=== PATIENT | female | born 1960 | race Two or more races ===

== ENCOUNTER 2023-09-10 09:46 | Inpatient (IN) ==
[2023-09-10] MEDS: fentaNYL 100 mcg/2 ml 50 MCG/ML VIAL IV SLOW PU ONE (10:16)
[2023-09-10] MEDS: Ondansetron 4 mg VIAL 2 MG/ML 2 ml VIAL IV ONE ×3 (10:16→15:12)
[2023-09-10] MEDS: Acetaminophen IV 1 GM/100ML 1,000 MG/100 ML BAG IV ONE (10:20)
[2023-09-10] MEDS: Cefepime 2 GM in Dextrose 2 GM/50 ML BAG IV ONE (10:22)
[2023-09-10 10:27] LABS: ABS Lymphocytes 0.8 10^3/uL (1.0-4.8); ABS Monocytes 0.8 10^3/uL (0.0-0.9); ABS Nucleated RBC 0.01 10^3/ul; Eosinophil % 0.3 %; Hematocrit 38.4 % (35-45); Hemoglobin 12.7 g/dL (11.5-14.3); Lymphocyte % 8.1 %; Mean Corpuscular Hemoglobin 27.3 pg (27-33); Mean Corpuscular Hgb Conc 33.2 g/dL (31-36); Mean Corpuscular Volume 82.2 fL (80-97); Mean Platelet Volume 8.3 fL (7.5-11.2); Nucleated Red Blood Cells % 0.1 %/100WBC (0.0-0.8); Platelet Count 294 10^3/uL (150-450); Red Blood Count 4.67 10^6/uL (3.63-4.92); Red Cell Distribution Width 14.8 % (12-17); White Blood Count 9.6 10^3/uL (3.8-11.8)
[2023-09-10 10:40] LABS: Activated Partial Thrombo Time 23.7 seconds (26.0-38.0); INR 1.05 (0.83-1.13)
[2023-09-10] MEDS: Morphine 4 MG/ML VIAL (1 ml) IV ONE ×2 (10:40→15:16)
[2023-09-10] MEDS: metroNIDAZOLE IV 500 MG/100ML 500 MG/100 ML BAG IVPB ONE (10:44)
[2023-09-10 10:49] LABS: Albumin 4.6 g/dL (3.2-5.2); Albumin/Globulin Ratio 1.9 (1-3); C Reactive Protein 14.28 mg/L (<8.01); Calcium 9.7 mg/dL (8.6-10.3); Creatinine, Serum 0.88 mg/dL (0.51-0.95); Globulin 2.4 g/dL (2-4); Potassium 4.2 mmol/L (3.5-5.0); Total Bilirubin 0.6 mg/dL (0.2-1.0); eGFR CKD-EPI 73.3 (>60)
[2023-09-10] MEDS ORDERED: Vancomycin 1,250 MG in NS 0.9% 250 ml 250 ML IVPB SCH (11:00)
[2023-09-10] MEDS: Lactated Ringers SEPSIS* BAG 1,570 ML IV ONE (11:24)
[2023-09-10 12:02] LABS: High Sensitivity Troponin 1 Hr < 3 pg/mL (<15)
[2023-09-10] MEDS: Vancomycin 1,250 MG in NS 0.9% 250 ml 250 ML IVPB ONE (12:23)
[2023-09-10] MEDS: Iohexol 300 (CONTRAST) 10 ML SDV IV ONE (12:58)
[2023-09-10 15:15] LABS: Urine Appearance Clear; Urine Bacteria Absent /HPF (Absent); Urine Bilirubin Negative (Negative); Urine Blood Negative (Negative); Urine Color Yellow; Urine Glucose Negative (Negative); Urine Ketones Trace (Negative); Urine Nitrite Negative (Negative); Urine Protein 1+ (>=30 mg/dL) (Negative); Urine Red Blood Cell Trace(0-2/hpf) /HPF (0-Trace); Urine Specific Gravity >1.050 (1.002-1.030); Urine Squamous Epithelial Cell Present /HPF (Absent); Urine Urobilinogen Negative (Negative); Urine White Blood Cell Trace(0-5/hpf) /HPF (0-Trace)
[2023-09-10] MEDS: Famotidine IV 10 MG/ML 2 ml VIAL (20 mg) IV SLOW PU ONE (15:16)
[2023-09-10] MEDS ORDERED: Dextrose 50% Syringe 50 ml 25 GM/50 ML SYRINGE IV PUSH PRN (17:35)
[2023-09-10] MEDS ORDERED: Lactated Ringers 1000 ml BAG 1,000 ML IV SCH (18:00)
[2023-09-10] MEDS: Morphine 4 MG/ML VIAL (1 ml) IV PRN (18:15)
[2023-09-10] MEDS: Acetaminophen IV 1 GM/100ML 1,000 MG/100 ML BAG IV SCH (18:18)
[2023-09-10] MEDS: Lactated Ringers 1000 ml BAG 1,000 ML IV SCH (18:22)
[2023-09-10] MEDS: Ondansetron 4 mg VIAL 2 MG/ML 2 ml VIAL IV PRN (18:50)
[2023-09-10] MEDS ORDERED: Diatrizoate Meg/Sod(CONTRAST) 30 ML ORAL.SOLN PO ONE (20:00)
[2023-09-10] MEDS: Prochlorperazine 5 mg/ml 2 ml VIAL (10 mg) IV ONE (21:00)
[2023-09-11] MEDS: Acetaminophen IV 1 GM/100ML 1,000 MG/100 ML BAG IV SCH (06:36)
[2023-09-11 07:01] LABS: Creatinine, Serum 0.54 mg/dL (0.51-0.95); Potassium 3.8 mmol/L (3.5-5.0); eGFR CKD-EPI 102.7 (>60)
[2023-09-11] MEDS: Enoxaparin 40 MG/0.4 ML SYR SUBCUT SCH (12:07)
[2023-09-11] MEDS: COVID VAC 23-24(12+)(Moderna) SYR 0.5 ML IM ONE (12:47)
[2023-09-11 14:04] VITALS: BP 117/50
== END 2023-09-11 15:35 | disposition home or self-care (01) | DRG 390 ==
LOC: ED 09:46 → EDHOLD 15:40 → MED 09-11 08:28
PROVIDERS: ADMIT Internal Medicine; ATTEND Internal Medicine